=== PATIENT | female | born 1950 | race Caucasian/White ===

== ENCOUNTER → 2016-11-28 | Outpatient (CLI) | payer MEDICARE ==
[~2016-11-28] MED LIST: CALCIUM WITH D; EC-NAPROSYN500 MG PO; FISH OIL 1,0001 CAP PO; FISH OIL 1,001000 MG PO; FLEXERIL10 MG PO; HYDROXYZINE HCL25 M1 PO; IMITREX50 MG PO; LIPITOR PO; LIPITOR20 MG PO; MAGNESIUM500 MG PO; MENEST; NALFON400 MG PO; PERCOCET 5-3251 TAB PO; PHENERGAN25 M1 PO; SIMVASTATIN40 MG PO; TORADOL10 MG PO; VIT E PO; VIT. C; VITAMIN E400 UNI5 PO; ZYRTEC PO; [UNRECOGNIZED DRUG - REMARK]
--- NOTE | ~2016-11-28 | US77 ---
[facility]. [facility] A Service of [facility] & [facility] RADIOLOGY TEXT RESULTS PATIENT: VENTURA AYALA LOCATION: SGUS : 48 UNIT #: [id number] AGE: [address]: Raymond De Leon MD SEX: F ORDER DR: [id number] [address] [address] [id number] O MR#: [id number] Acc #: [id number] NAME: VENTURA AYALA : 1950 SEX: F STUDY DATE/TIME: 11/28/2016 12:36 UNIT: SGUS ROOM: STUDY DESCRIPTION: US Kidney Bilateral Complete Attending Physician: Raymond De Leon M.D. Referring Physician: Raymond De Leon M.D. Ordering Physician: Raymond De Leon M.D. Primary Care Physician: Deborah Hanks M.D. MEDICAL IMAGING REPORT This report is preliminary unless electronic signature is present. EXAM Renal ultrasound bilateral, 11/28/2016 HISTORY Urinary tract infection for 2 weeks off and on, within the last 6 months. FINDINGS The right kidney measured 11.8 cm, while the left kidney measured 10.1 cm in longitudinal dimensions. There is no evidence of hydronephrosis or nephrolithiasis. No cystic or solid mass lesions were seen on either kidney. There is normal renal cortical echogenicity. Images of the bladder are normal. IMPRESSION 1. Negative renal ultrasound. 2. Images of the bladder are normal. Dictated by... Paramjit Santana M.D. THIS IS AN ELECTRONICALLY VERIFIED REPORT Paramjit Santana M.D. at 11/29/2016 4:53 PM KRT/psc TD: 11/29/2016 00:53 JOB #: [id number] MEDICAL IMAGING REPORT Page 1 of 1
== END | disposition home or self-care (01) ==
LOC: SGUS 07:39
DX: N39.0 Urinary tract infection, site not specified (principal)
CPT/HCPCS: 76775